=== PATIENT | female | born 1995 | race Caucasian/White ===

== ENCOUNTER 2019-03-23 16:00 | Emergency (ER) | payer OTHER ==
[~2019-03-23] VITALS: Ht 165.1 cm; Wt 86.2 kg
[2019-03-23 16:14] VITALS: Ht 165.1 cm; Wt 86.2 kg
[2019-03-23 19:09] VITALS: BP 118/73
== END 2019-03-23 18:40 | disposition home or self-care (01) ==
LOC: ED 16:00
DX: M25.531 Pain in right wrist (principal); M53.3 Sacrococcygeal disorders, not elsewhere classified; W18.30XA Fall on same level, unspecified, initial encounter; Y93.89 Activity, other specified; Y92.89 Other specified places as the place of occurrence of the external cause; Y99.8 Other external cause status
CPT/HCPCS: J1885; J2270